=== PATIENT | male | born 1970 | race Caucasian/White ===

== ENCOUNTER 2017-11-11 12:30 | Observation (INO) ==
[2017-11-11 12:35] VITALS: BMI 27.0
[2017-11-11] MEDS ORDERED: ZOFRAN INJ 4 MG VIAL ONE (14:23)
[2017-11-11] MEDS ORDERED: ZOFRAN INJ 4 MG VIAL IVP ONE (14:23)
--- NOTE | 2017-11-11 14:30 | DR.ABDMALE ---
HPI - Time seen Time seen: 14:25 - PCP Primary Care Physician: JASON NAJERA - HPI comment HPI Comment: PAIN IS CRAMPY AND RADIATE TO LLQ OF ABD. PAIN ASSOCIATED WITH NAUSEA, WEAKNESS AND FATIGUE. NO FEVER. WORSE 2 WEEKS AGO BUT SEVERE TODAY. HAD BM TODAY - Complaint Chief Complaint Doctors Comments: LEFT FLANK AND LT UPPER QUADRANT ABD PAIN TIMES ONE. Chief Complaint:: PT. C/O LEFT FLANK PAIN X 1 MONTH WITH WORSENING PAIN X 2 WEEKS, NAUSEA, AND FATIGUE. PT. SEEN PCP TODAY IN THE OFFICE AND HAD HIS URINE CHECKED WELL FECAL OCCULT BLOOD WHICH WERE BOTH NEGATIVE PER PT. - Reviewed Nurses Notes Review: Yes - Mode of arrival Mode of Arrival: Ambulatory - Timing Onset of Chief Complaint: 10/12/17 Came on: Suddenly - Duration Duration: Constant Duration: Weeks - Location Location: LUQ, LLQ - Severity Severity: Moderate - Quality Quality: Cramping - Context Onset: Unknown History of: None - Modifying factors Worsening Factors: Nothing Improving Factors: Nothing - Associated signs and symptoms Associated Signs and Symptoms: Nausea PMH - PMH Past Medical History: Yes Past Medical History: Kidney Stones Past Surgical History: Yes Surgical History: Appendectomy, Cholecystectomy - Family History History of Family Medical Conditions: No - Social History Does patient currently use any type of tobacco product: No Have you used tobacco products in the last 12 months: No Type of Tobacco Use: None Does any household member use tobacco: No Alcohol Use: None Do you use any recreational Drugs:: No Lives With: Spouse Lives Where: Home - infectious screening In the last 2 months have you had wt loss of >10#?: NO Have you had fever, night sweats or hemotysis?: No Have you traveled outside the country in the last 6 months?: No Isolation: Standard ROS - Review of Systems Constitutional: Weakness, Fatigue. negative: Chills, Fever Eyes: No Symptoms Reported ENTM: No Symptoms Reported. negative: Ear Pain, Nose Discharge, Nose Congestion , Throat Pain Respiratoy: No Symptoms Reported. negative: Productive Cough, Short of Breath, Wheezing, Hemoptysis Cardiovascular: No Symptoms Reported Gastrointestinal/Abdominal: Abdominal Pain, Nausea Genitourinary: No Symptoms Reported Neurological: No Symptoms Reported Musculoskeletal: No Symptoms Reported Integumentary: No Symptoms Reported Hematologic/Lymphatic: No Symptoms Reported Endocrine: No Symptoms Reported All Other Systems: Reviewed and Negative PE - General Limitations: No Limitations General Appearance: Alert - Head Head Exam: Normal Inspection - Eyes Eye exam: Normal Appearance - ENT ENT Exam: Normal External Ear Exam - Neck Neck Exam: Trachea Midline - Chest Chest Inspection: Symmetric Chest Wall Rise - Respiratory Respiratory Exam: Normal Lung Sounds Bilat Respiratory Exam: Bilateral Clear to Auscultation - Cardiovascular Cardiovascular Exam: Regular Rate, Normal Rhythm, Normal Heart Sounds - Abdominal Exam Abdominal Exam: Normal Bowel Sounds, Soft, Tenderness Abdominal Tenderness: LUQ, LLQ, Moderate, Other (LT FLANK PAIN) - Rectal Rectal Exam: Deferred - Back Back Exam: (L) CVA Tenderness - Extremeties Extremities Exam: Normal Inspection - Exam: Male: Deferred - Neurologic Neurological Exam: Alert, Oriented X3. negative: CN II-XII Intact, Motor Sensory Deficit - Psychiatric Psychiatric Exam: Anxious - Skin Skin Exam: Normal Color - Vital Signs Vital Signs: Temp Pulse Resp BP Pulse Ox 11/11/17 12:31 97.4 F L 73 20 113/77 97 MDM - Differential Diagnosis Differential Diagnosis: Bowel Obstruction, Constipation, Diverticular disease, Gastritus/PUD, Gastroenteritis, Pancreatitis, Urinary tract infection, Urolithiasis Course - Treatment Treatment: SEE REPORT. - Consultation Consultation Comments: DISCUSS PATIENT WITH DR. MITCHELL. HE WILL ADMIT PATIENT. - Education/Counseling Education/Counseling: Patient, Education Educated On: Diagnosis ROR - Labs Reviewed Laboratory Results Reviewed?: Yes Result Diagrams: 11/12/17 05:00 11/13/17 04:42 - XRAY XRAY Interpreted by: Radiologist XRAY Findings: REPORT DISCUSS WITH PATIENT - Labs Reviewed Laboratory: WBC 4.5 X10^3/uL (3.6-10.0) 11/11/17 14:36 RBC 5.00 X10^6/uL (4.7-6.0) 11/11/17 14:36 Hgb 14.9 g/dL (13.5-18.0) 11/11/17 14:36 Hct 42.8 % (42.0-54.0) 11/11/17 14:36 MCV 85.6 fL (80.0-100.0) 11/11/17 14:36 MCH 29.8 pg (27.0-34.0) 11/11/17 14:36 MCHC 34.8 g/dL (33.0-35.0) 11/11/17 14:36 RDW 13.2 % (11.6-16.5) 11/11/17 14:36 Plt Count 161 X10^3/uL (150.0-450.0) 11/11/17 14:36 MPV 9.8 fL (7.4-11.0) 11/11/17 14:36 Neut % (Auto) 52.5 % (42.0-75.0) 11/11/17 14:36 Lymph % (Auto) 32.8 % (21.0-51.0) 11/11/17 14:36 [place] % (Auto) 12.7 % (0.0-13.0) 11/11/17 14:36 Eos % (Auto) 1.4 % (0.9-2.9) 11/11/17 14:36 Baso % (Auto) 0.6 % (0.2-1.0) 11/11/17 14:36 Neut # (Auto) 2.3 x10^3/uL (2.2-4.8) 11/11/17 14:36 Lymph # (Auto) 1.5 X10^3/uL (1.3-2.9) 11/11/17 14:36 [place] # (Auto) 0.6 x10^3/uL (0.3-0.8) 11/11/17 14:36 Eos # (Auto) 0.1 x10^3/uL (0.0-0.2) 11/11/17 14:36 Baso # (Auto) 0.0 X10^3/uL (0.0-0.1) 11/11/17 14:36 Absolute Nucleated RBC 0.0 /100WBC 11/11/17 14:36 Sodium 142 mmol/L (136-145) 11/11/17 14:36 Corrected Sodium TNP 11/11/17 14:36 Potassium 4.2 mmol/L (3.5-5.1) 11/11/17 14:36 Chloride 105 mmol/L (98-107) 11/11/17 14:36 Carbon Dioxide 32.1 mmol/L (21-32) H 11/11/17 14:36 BUN 12 mg/dL (7-18) 11/11/17 14:36 Creatinine 1.02 mg/dL (0.70-1.30) 11/11/17 14:36 Est GFR (MDRD) Af Amer > 60 (>60) 11/11/17 14:36 Est GFR (MDRD) Non-Af > 60 (>60) 11/11/17 14:36 Glucose 89 mg/dL (65-99) 11/11/17 14:36 Calcium 7.7 mg/dL (8.5-10.1) L 11/11/17 14:36 Corrected Calcium TNP 11/11/17 14:36 Total Bilirubin 0.40 mg/dL (0.2-1.0) 11/11/17 14:36 AST 25 Units/L (15-37) 11/11/17 14:36 ALT 31 Units/L (12-78) 11/11/17 14:36 Alkaline Phosphatase 96 Units/L (46-116) 11/11/17 14:36 Total Protein 6.5 g/dL (6.4-8.2) 11/11/17 14:36 Albumin 3.5 g/dL (3.4-5.0) 11/11/17 14:36 Globulin 3.0 g/dL (2.5-4.5) 11/11/17 14:36 Albumin/Globulin Ratio 1.2 Ratio (1.1-2.1) 11/11/17 14:36 Amylase 37 Units/L (25-115) 11/11/17 14:36 Lipase 113 Units/L (73-393) 11/11/17 14:36 Specimen Type Clean catch urine 11/11/17 15:00 Urine Color Yellow (YELLOW) 11/11/17 15:00 Urine Appearance Clear (CLEAR) 11/11/17 15:00 Urine pH 6.0 (5.0 - 8.0) 11/11/17 15:00 Ur Specific [place] 1.015 (1.000-1.030) 11/11/17 15:00 Urine Protein Negative (NEGATIVE) 11/11/17 15:00 Urine Glucose (UA) Negative (NEGATIVE) 11/11/17 15:00 Urine Ketones Negative (NEGATIVE) 11/11/17 15:00 Urine Occult Blood Negative (NEGATIVE) 11/11/17 15:00 Urine Nitrite Negative (NEGATIVE) 11/11/17 15:00 Urine Bilirubin Negative (NEGATIVE) 11/11/17 15:00 Urine Urobilinogen Normal (NORMAL) 11/11/17 15:00 Ur Leukocyte Esterase Negative (NEGATIVE) 11/11/17 15:00 H. pylori IgG Antibody Negative (NEGATIVE) 11/11/17 14:36 - Diagnosis Discharge Problem: LUQ abdominal pain, Mesenteric adenitis - Discharge Plan Disposition: ADMITTED INPATIENT Condition: Stable
[2017-11-11] MEDS ORDERED: NS 1000 ML 1,000 ML IV ONE (14:33)
[2017-11-11] MEDS ORDERED: NS 1000 ML 1,000 ML ONE (14:38)
[2017-11-11 14:50] LABS: BASOPHILS % (AUTO) 0.6 % (0.2-1.0); EOSINOPHILS # (AUTO) 0.1 x10^3/uL (0.0-0.2); EOSINOPHILS % (AUTO) 1.4 % (0.9-2.9); HEMATOCRIT 42.8 % (42.0-54.0); HEMOGLOBIN 14.9 g/dL (13.5-18.0); LYMPHOCYTES # (AUTO) 1.5 X10^3/uL (1.3-2.9); LYMPHOCYTES % (AUTO) 32.8 % (21.0-51.0); MEAN CORPUSCULAR HEMOGLOBIN 29.8 pg (27.0-34.0); MEAN CORPUSCULAR HGB CONC 34.8 g/dL (33.0-35.0); MEAN CORPUSCULAR VOLUME 85.6 fL (80.0-100.0); MEAN PLATELET VOLUME 9.8 fL (7.4-11.0); MONOCYTES # (AUTO) 0.6 x10^3/uL (0.3-0.8); MONOCYTES % (AUTO) 12.7 % (0.0-13.0); NEUTROPHILS # (AUTO) 2.3 x10^3/uL (2.2-4.8); NEUTROPHILS % (AUTO) 52.5 % (42.0-75.0); PLATELET COUNT 161 X10^3/uL (150.0-450.0); RED CELL DISTRIBUTION WIDTH 13.2 % (11.6-16.5); WHITE BLOOD COUNT 4.5 X10^3/uL (3.6-10.0)
[2017-11-11 15:06] LABS: ALANINE AMINOTRANSFERASE 31 Units/L (12-78); ALBUMIN 3.5 g/dL (3.4-5.0); ALKALINE PHOSPHATASE 96 Units/L (46-116); AMYLASE 37 Units/L (25-115); ASPARTATE AMINO TRANSFERASE 25 Units/L (15-37); BLOOD UREA NITROGEN 12 mg/dL (7-18); CALCIUM 7.7 mg/dL (8.5-10.1); CARBON DIOXIDE 32.1 mmol/L (21-32); CHLORIDE 105 mmol/L (98-107); CREATININE 1.02 mg/dL (0.70-1.30); LIPASE 113 Units/L (73-393); SODIUM 142 mmol/L (136-145); TOTAL PROTEIN 6.5 g/dL (6.4-8.2); eGFR NON BLACK RACES > 60 (>60)
[2017-11-11 15:06] LABS: BILIRUBIN,URINE NEGATIVE (NEGATIVE); BLOOD/HEMOGLOBIN,URINE NEGATIVE (NEGATIVE); GLUCOSE, URINE NEGATIVE (NEGATIVE); KETONES,URINE NEGATIVE (NEGATIVE); LEUKOCYTE ESTERASE ,URINE NEGATIVE (NEGATIVE); NITRITES,URINE NEGATIVE (NEGATIVE); PROTEIN,URINE NEGATIVE (NEGATIVE); UROBILINOGEN,URINE NORMAL (NORMAL)
[2017-11-11 15:09] LABS: APPEARANCE,URINE CLEAR (CLEAR); COLOR,URINE YELLOW (YELLOW)
--- NOTE | 2017-11-11 15:45 | CT ---
CT abdomen and pelvis without contrast Indication: Left upper quadrant abdominal pain Comparison: None available Technique: Multiple axial images of the abdomen and pelvis were obtained from the lung bases to the pubic symphy sis without the administration of IV contrast. Findings: The lung bases are clear. Round hypoattenuating lesions within the medial and lateral hepatic segment are indeterminate. There are likely an additional tiny hypoattenuating lesions within the posterior and anterior hepatic segments as well. Previous cholecystectomy is noted. The spleen, pancreas and ad renal glands are normal. Neither kidney demonstrates evidence of nephrolithiasis, hydronephrosis or m ass. Upper GI tract demonstrates no evidence of mass or obstruction. Urinary bladder is normal. Prost ate gland is normal. The rectum and colon are normal. Previous appendectomy is noted. No pelvic free fluid or adenopathy. Abdominal aorta is normal in caliber. Shotty mesenteric lymph nodes are noted ho wever there is no enlarged lymph node visualized. Mild haziness of the central mesenteric fat. Review of bone windows demonstrates no acute osseous abnormality. Previous posterior fixation of the lumbar spine spanning L5-S1 is noted. Impression: 1.Shotty mesenteric lymph nodes and very mild haziness within the mesenteric fat is nonspecific, this can be seen in setting of a mild mesenteric lymphadenitis and source of abdominal pain. Remaining ab domen and pelvis examination demonstrates no other acute abnormality or inflammatory process. 2. Several small round hypoattenuating lesions within the liver are indeterminate, statistically thes e most likely represent cysts. Reported By:
[2017-11-11] MEDS ORDERED: PHENERGAN INJ 25 MG IV ONE (15:54)
[2017-11-11] MEDS ORDERED: PHENERGAN INJ 25 MG ONE (16:13)
[2017-11-11] MEDS ORDERED: MORPHINE SULFATE INJ 2 MG INJ IVP PRN (17:33)
[2017-11-11] MEDS: D5 1/2 NS 1000 ML 1,000 ML IV SCH (21:33)
[2017-11-12] MEDS: D5 1/2 NS 1000 ML 1,000 ML IV SCH ×4 (02:43→18:30)
[2017-11-12 05:57] LABS: BASOPHILS % (AUTO) 0.8 % (0.2-1.0); EOSINOPHILS # (AUTO) 0.1 x10^3/uL (0.0-0.2); EOSINOPHILS % (AUTO) 2.6 % (0.9-2.9); HEMATOCRIT 41.4 % (42.0-54.0); HEMOGLOBIN 14.1 g/dL (13.5-18.0); LYMPHOCYTES # (AUTO) 1.9 X10^3/uL (1.3-2.9); LYMPHOCYTES % (AUTO) 40.8 % (21.0-51.0); MEAN CORPUSCULAR HEMOGLOBIN 29.5 pg (27.0-34.0); MEAN CORPUSCULAR HGB CONC 34.2 g/dL (33.0-35.0); MEAN CORPUSCULAR VOLUME 86.3 fL (80.0-100.0); MEAN PLATELET VOLUME 10.7 fL (7.4-11.0); MONOCYTES # (AUTO) 0.5 x10^3/uL (0.3-0.8); MONOCYTES % (AUTO) 10.9 % (0.0-13.0); NEUTROPHILS # (AUTO) 2.1 x10^3/uL (2.2-4.8); NEUTROPHILS % (AUTO) 44.9 % (42.0-75.0); PLATELET COUNT 158 X10^3/uL (150.0-450.0); RED BLOOD COUNT 4.79 X10^6/uL (4.7-6.0); RED CELL DISTRIBUTION WIDTH 13.1 % (11.6-16.5); WHITE BLOOD COUNT 4.6 X10^3/uL (3.6-10.0)
[2017-11-12 06:05] LABS: ALANINE AMINOTRANSFERASE 31 Units/L (12-78); ALBUMIN 2.8 g/dL (3.4-5.0); ALKALINE PHOSPHATASE 86 Units/L (46-116); ASPARTATE AMINO TRANSFERASE 18 Units/L (15-37); BLOOD UREA NITROGEN 11 mg/dL (7-18); CALCIUM 6.9 mg/dL (8.5-10.1); CARBON DIOXIDE 29.4 mmol/L (21-32); CHLORIDE 108 mmol/L (98-107); COR CA(FOR HYPOALB) 7.9 mg/dL (8.5-10.1); COR NA(FOR HYPERGLY) 143 mmol/L (136-145); CREATININE 0.99 mg/dL (0.70-1.30); SODIUM 143 mmol/L (136-145); TOTAL PROTEIN 5.9 g/dL (6.4-8.2); eGFR NON BLACK RACES > 60 (>60)
[2017-11-12] MEDS ORDERED: POTASSIUM CHLORIDE LIQ 20 MEQ UDC PO PRN (07:10)
[2017-11-12] MEDS ORDERED: K-LYTE EFFERVESCENT PO PRN (07:10)
[2017-11-12] MEDS ORDERED: POTASSIUM CHL 40 MEQ/NS 0.45% 500 ML IV PRN (07:10)
[2017-11-12] MEDS ORDERED: POTASSIUM CHL 60 MEQ/NS 0.45% 500 ML IV PRN (07:10)
[2017-11-12] MEDS ORDERED: NS 1000 ML 1,000 ML ONE (08:23)
[2017-11-12] MEDS ORDERED: DIPRIVAN VIAL 20 ML ONE (08:36)
--- NOTE | 2017-11-12 09:08 | OR.GENERIC ---
Post-Op Note Generic - Post-Op Note Operative Report: EGD was performed . fondings :1-Gastroperesis with large amount of food particles in the stomach 2- Gastro duodenitis .3-mild esophagitis .. to keep on low fat diet , Reglan 10 mg TID . Protonix 40 daily . gastric motility study in the future .
[2017-11-12] MEDS: PROTONIX INJ 40 MG VIAL IVP SCH (09:28)
[2017-11-12] MEDS: MAGNESIUM SULFATE 1 GRAM/100 mL PREMIX 1 GM/100 ML BAG IV PRN ×2 (09:33→12:14)
[2017-11-12] MEDS ORDERED: PHARMACY CONSULT - DOSE _____ XX SCH (11:00)
[2017-11-12] MEDS ORDERED: ZOFRAN INJ 4 MG VIAL IVP PRN (12:15)
[2017-11-12] MEDS: [UNRECOGNIZED DRUG - OTHER] PO SCH ×3 (12:30→20:20)
[2017-11-12] MEDS: K-RIDER 10 MEQ/NS 100 ML 10 MEQ/100 ML BAG IV PRN ×2 (14:37→15:35)
[2017-11-12] MEDS ORDERED: PHENERGAN INJ 25 MG IV PRN (17:14)
[2017-11-13] MEDS: D5 1/2 NS 1000 ML 1,000 ML IV SCH (03:21)
[2017-11-13] MEDS: PROTONIX INJ 40 MG VIAL IVP SCH (08:50)
[2017-11-13] MEDS: [UNRECOGNIZED DRUG - OTHER] PO SCH (08:50)
[2017-11-13 13:57] VITALS: BP 106/72
== END 2017-11-13 12:50 | disposition home or self-care (01) ==
LOC: MED/SURG 13:12 → ER 13:12 → MED/SURG 18:55
PROVIDERS: ADMIT Obstetrics & Gynecology Obstetrics; ATTEND Obstetrics & Gynecology Obstetrics
DX: R10.13 Epigastric pain; K31.84 Gastroparesis; R10.84 Generalized abdominal pain; K20.8 Other esophagitis; K21.9 Gastro-esophageal reflux disease without esophagitis; K29.90 Gastroduodenitis, unspecified, without bleeding
CPT/HCPCS: 36415; 74176; 80053; 81003; 82150; 82306; 83690; 83735; 83970; 84132; 85025; 86677; 96365; 96374; 96375; 99283; 99284; A4216; A4222; C9113; A4217; G0378; J1610; J2405; J2550; J2704; J3475; J3480; J7030; S5010

== ENCOUNTER 2019-01-21 17:41 | Observation (INO) ==
[2019-01-21 19:17] LABS: BASOPHILS # (AUTO) 0.1 X10^3/uL (0.0-0.1); EOSINOPHILS # (AUTO) 0.1 x10^3/uL (0.0-0.2); HEMATOCRIT 42.6 % (42.0-54.0); HEMOGLOBIN 14.7 g/dL (13.5-18.0); LYMPHOCYTES # (AUTO) 2.1 X10^3/uL (1.3-2.9); LYMPHOCYTES % (AUTO) 20.6 % (21.0-51.0); MEAN CORPUSCULAR HEMOGLOBIN 30.1 pg (27.0-34.0); MEAN CORPUSCULAR HGB CONC 34.4 g/dL (33.0-35.0); MEAN CORPUSCULAR VOLUME 87.4 fL (80.0-100.0); MEAN PLATELET VOLUME 10.1 fL (7.4-11.0); MONOCYTES # (AUTO) 0.7 x10^3/uL (0.3-0.8); MONOCYTES % (AUTO) 7.3 % (0.0-13.0); NEUTROPHILS # (AUTO) 7.2 x10^3/uL (2.2-4.8); NEUTROPHILS % (AUTO) 70.1 % (42.0-75.0); PLATELET COUNT 161 X10^3/uL (150.0-450.0); RED BLOOD COUNT 4.88 X10^6/uL (4.7-6.0); WHITE BLOOD COUNT 10.3 X10^3/uL (3.6-10.0)
[2019-01-21 19:35] LABS: ALANINE AMINOTRANSFERASE 28 Units/L (12-78); ALBUMIN 3.4 g/dL (3.4-5.0); ALKALINE PHOSPHATASE 77 Units/L (46-116); AMYLASE 29 Units/L (25-115); ASPARTATE AMINO TRANSFERASE 22 Units/L (15-37); BLOOD UREA NITROGEN 18 mg/dL (7-18); CALCIUM 7.9 mg/dL (8.5-10.1); CARBON DIOXIDE 26.4 mmol/L (21-32); CHLORIDE 104 mmol/L (98-107); CREATININE 1.15 mg/dL (0.70-1.30); LIPASE 99 Units/L (73-393); SODIUM 140 mmol/L (136-145); eGFR NON BLACK RACES > 60 (>60)
[2019-01-21] MEDS: ZOFRAN INJ 4 MG VIAL IVP PRN (19:48)
[2019-01-21] MEDS: MORPHINE SULFATE INJ 2 MG INJ IVP PRN ×2 (19:50→23:53)
[2019-01-21] MEDS: FLAGYL IV PREMIX 500 MG BAG 500 MG/100 ML BAG IV SCH (19:51)
[2019-01-21] MEDS: NS 1000 ML 1,000 ML IV SCH (19:51)
[2019-01-21 20:35] VITALS: BMI 25.9
[2019-01-21] MEDS: ZOSYN VIAL 3.375 GRAMS 3.375 G in NS 100 ML IV + SPIKE MINIBAG* 100 ML IV SCH (20:56)
[2019-01-21] MEDS ORDERED: ZOSYN VIAL 3.375 GRAMS IV SCH (22:00)
[2019-01-22] MEDS: FLAGYL IV PREMIX 500 MG BAG 500 MG/100 ML BAG IV SCH ×3 (02:14→19:42)
[2019-01-22] MEDS: ZOSYN VIAL 3.375 GRAMS 3.375 G in NS 100 ML IV + SPIKE MINIBAG* 100 ML IV SCH ×3 (03:31→20:50)
[2019-01-22] MEDS: NS 1000 ML 1,000 ML IV SCH ×2 (09:58→22:33)
--- NOTE | 2019-01-22 10:11 | RAD ---
HISTORY: Abdominal pain. Prior history of spine surgery, cholecystectomy and appendectomy. Study: Acute abdominal series Comparison: CT scan of the abdomen and pelvis done 11/11/2017. Findings: The trachea is midline. The cardiac silhouette is upper normal with aortic uncoiling. Right paratracheal soft tissue thickening may be vascular.. The lungs are clear without focal infiltrate or effusion. The bony thorax is unremarkable. Flat plate and upright evaluation of the abdomen demonstrates a moderate amount of stool throughout the colon. No bowel obstruction is seen. There is no evidence of free intraperitoneal air or fluid. There are surgical clips from cholecystectomy. Metallic pedicle screws and rods are present at L5-S1. The surgical hardware appears intact.. No pathological soft tissue mass or calcification can be observed. The bony structures are grossly intact. IMPRESSION: 1. Hypertensive configuration without acute cardiopulmonary disease. 2. No evidence for acute abdominal pathology identified. Reported By:
--- NOTE | 2019-01-22 12:46 | CT ---
CT abdomen and pelvis with contrast Indication: Abdominal pain and left upper quadrant pain Technique: Helical images through the abdomen and pelvis with contrast. Coronal and sagittal reformats provided Comparison: 11/11/2017 Findings: Limited images through the lower chest shows no acute abnormality. Review of bone windows shows spine DJD and postsurgical change Abdomen: Scattered hepatic hypodensities are noted. Gallbladder is absent. The spleen, pancreas, adrenal glands, stomach and small bowel are normal. Oral contrast passes distally without obstruction. Appendix is probably absent with postsurgical change seen near the cecum. No acute colonic abnormality identified. Vasculature is relatively normal with small circumaortic left renal vein incidentally noted. Kidneys show no hydroureteronephrosis. Punctate left upper pole renal stone suspected. Pelvis: The urinary bladder, rectum and prostate gland are normal. Impression: 1. No acute abnormality to explain the patient's pain. 2. Question punctate left upper pole renal stone on sagittal image 22. 3. Hepatic cysts, spine DJD and postsurgical changes with other findings as above. Reported By:
[2019-01-22 15:22] LABS: BILIRUBIN,URINE NEGATIVE (NEGATIVE); BLOOD/HEMOGLOBIN,URINE NEGATIVE (NEGATIVE); GLUCOSE, URINE NEGATIVE (NEGATIVE); KETONES,URINE NEGATIVE (NEGATIVE); LEUKOCYTE ESTERASE ,URINE NEGATIVE (NEGATIVE); NITRITES,URINE NEGATIVE (NEGATIVE); PH,URINE 6.5 (5.0 - 8.0); PROTEIN,URINE NEGATIVE (NEGATIVE); UROBILINOGEN,URINE NORMAL (NORMAL)
[2019-01-22 15:32] LABS: APPEARANCE,URINE CLEAR (CLEAR); COLOR,URINE YELLOW (YELLOW)
[2019-01-22] MEDS: MORPHINE SULFATE INJ 2 MG INJ IVP PRN (15:32)
[2019-01-22] MEDS: ZOFRAN INJ 4 MG VIAL IVP PRN (15:32)
[2019-01-23] MEDS: FLAGYL IV PREMIX 500 MG BAG 500 MG/100 ML BAG IV SCH ×2 (02:12→10:15)
[2019-01-23] MEDS: ZOSYN VIAL 3.375 GRAMS 3.375 G in NS 100 ML IV + SPIKE MINIBAG* 100 ML IV SCH (03:36)
[2019-01-23] MEDS: NS 1000 ML 1,000 ML IV SCH (03:36)
[2019-01-23 08:09] VITALS: BP 94/55
== END 2019-01-23 11:45 | disposition home or self-care (01) ==
LOC: MED/SURG
PROVIDERS: ADMIT Obstetrics & Gynecology Obstetrics; ATTEND Obstetrics & Gynecology Obstetrics
DX: R10.12 Left upper quadrant pain; R50.9 Fever, unspecified; R11.2 Nausea with vomiting, unspecified; R10.32 Left lower quadrant pain
CPT/HCPCS: 36415; 74022; 74177; 80053; 81003; 82150; 83690; 85025; 96367; 96374; A4222; S0030; G0378; J2270; J2405; J2543; J7030; J7050